=== PATIENT | female | born 1980 | race African-American/Black ===

== ENCOUNTER 2017-05-20 10:40 | Emergency (ER) | payer OTHER ==
[~2017-05-20] VITALS: Ht 167.6 cm; Wt 90.7 kg
[2017-05-20] MEDS ORDERED: AMOXICILLIN 50500 MG PO (11:26)
== END 2017-05-20 13:27 | disposition home or self-care (01) ==
LOC: ER 10:40
DX: J02.0 Streptococcal pharyngitis (principal)